=== PATIENT | female | born 1935 | race Caucasian/White ===

== ENCOUNTER 2017-01-17 09:29 | Emergency (ER) | payer OTHER ==
[~2017-01-17] VITALS: Ht 147.3 cm; Wt 61.0 kg
[2017-01-17 09:30] VITALS: BP 154/66; PULSE 104; RESP 16; TEMP 98.4; O2SAT 96
[2017-01-17] MEDS ORDERED: XARE15TA PO (09:50)
[2017-01-17] MEDS ORDERED: GABA100C4 PO (09:50)
[2017-01-17] MEDS ORDERED: SERT-132 PO (09:50)
[2017-01-17] MEDS ORDERED: PRAV20TA2 PO (09:50)
[2017-01-17] MEDS ORDERED: LEVO100T5 PO (09:50)
[2017-01-17] MEDS ORDERED: CART120C PO (09:50)
[2017-01-17] MEDS ORDERED: DIGO1TAB59 PO (09:50)
[2017-01-17] MEDS ORDERED: ALPR0.25 PO (09:50)
[2017-01-17] MEDS ORDERED: PRIL20TA2 (09:50)
[2017-01-17] MEDS ORDERED: VENTAER INH (09:51)
[2017-01-17] MEDS ORDERED: CITA10TA4 PO (09:51)
--- NOTE | 2017-01-17 10:13 | PD ---
HPI Chief Complaint: Musculoskeletal Complaint Time Seen by Provider: 09:53 Travel History International Travel<30 days: No Contact w/Intl Traveler<30days: No Traveled to known affect area: No History of Present Illness HPI 81-year-old female presents to the emergency room for evaluation of right leg pain that started this morning when she woke up. Pain is difficult to localize but starts in the lateral hip and extends down to the ankle. She has significant pain with ambulation. At rest, she only has pain in her knee. Pain is localized to the back of the knee. Denies trauma, fall, or injury. Patient states the past 3 days she has had right knee pain which has caused her to limp. This knee pain is chronic and intermittent. She does not take anything for her symptoms. Reports swelling just around the knee. Patient is on Xarelto for A. fib. She denies paresthesias, chest pain, new or worsening shortness of breath, or unilateral leg swelling. States both of her sisters have had blood clots and she is concerned for the same. She has history of degenerative disc disease, sciatica, and low back pain. PFSH Past Medical History ?: Unknown Social History Tobacco Use: No Allergies-Medications (Allergen,Severity, Reaction): Coded Allergies: No Known Allergies (Unverified , 01/17/17) Reported Meds & Prescriptions Reported Meds & Active Scripts Active Reported Citalopram (Citalopram Hydrobromide) 10 Mg Tab 10 Mg PO DAILY Ventolin Hfa 18 GM Inh (Albuterol Sulfate) 90 Mcg/Act Aer 1 Puff INH Q4H PRN Levothyroxine (Levothyroxine Sodium) 100 Mcg Tab 100 Mcg PO DAILY Pravastatin 20 Mg Tab 20 Mg PO DAILY Xarelto (Rivaroxaban) 15 Mg Tab 15 Mg PO DAILY Sertraline (Sertraline HCl) 50 Mg Tab 50 Mg PO DAILY Cartia Xt (Diltiazem ER 24 HR) 120 Mg Caper 100 Mg PO DAILY Alprazolam 0.25 Mg Tab 0.25 Mg PO HS PRN Prilosec (Omeprazole Magnesium) 20 Mg Tab Gabapentin 100 Mg Cap 100 Mg PO TID Digitek (Digoxin) 125 Mcg Tab 0.125 Mg PO DAILY Review of Systems Except as stated in HPI: all other systems reviewed are Neg Physical Exam Narrative GENERAL: Well-nourished, well-developed female in no acute distress. Afebrile. Ambulatory with a limp. SKIN: Focused skin assessment warm/dry. No erythema or ecchymosis. HEAD: Normocephalic. EYES: No scleral icterus. No injection or drainage. NECK: Supple, trachea midline. No JVD or lymphadenopathy. CARDIOVASCULAR: Regular rate and rhythm without murmurs, gallops, or rubs. RESPIRATORY: Breath sounds equal bilaterally. No accessory muscle use. MUSCULOSKELETAL: No cyanosis. No obvious edema. Pain with dorsiflexion and plantar flexion of the right foot. Full range of motion of the right hip and knee. Patient can lift leg off bed without difficulty. No calf tenderness. One plus dorsalis pedis pulse; confirmed with Doppler. Less than 2 second capillary refill distally. Data Data Last Documented VS Vital Signs Date Time Temp Pulse Resp B/P (MAP) Pulse Ox O2 Delivery O2 Flow Rate FiO2 01/17/17 09:30 98.4 104 16 154/66 (95) 96 Orders Orders Us Leg Venous Doppler (01/17/17 ) [facility] Medical Decision Making Medical Screen Exam Complete: Yes Emergency Medical Condition: Yes Medical Record Reviewed: Yes Differential Diagnosis Muscle strain, sciatica, muscle spasm Narrative Course 81-year-old female on Xarelto for A. fib presents to the emergency room for evaluation of right leg pain that started earlier. States for the past 3 days she has had a flare of chronic knee pain that spread to the remainder of her leg today. She has been limping because of the knee pain. Pain is constant, worse with range of motion and ambulation. She denies paresthesias. Denies trauma, injury, or fall. She does have faint, 1+ dorsalis pedis pulse confirmed with Doppler. Full range of motion of the right lower extremity. No obvious edema. Patient is concerned for blood clot and states she would feel better if she can get an ultrasound. I have low suspicion for DVT as patient is on blood thinners and there is no unilateral, pitting edema. Ultrasound shows 4 cm Khan cyst with no evidence of DVT. Patient was reassured and told to follow up with her primary care physician or return for worsening symptoms per chart understands and agrees to plan. Diagnosis Primary Impression: Muscle strain of right lower extremity Qualified Codes: S86.911A - Strain of unspecified muscle(s) and tendon(s) at lower leg level, right leg, initial encounter Additional Impression: Khan's cyst of knee Qualified Codes: M71.21 - Synovial cyst of popliteal space [Khan], right knee Referrals: Primary Care Physician Additional Instructions: Rest and drink plenty of fluids. Tylenol as directed, as needed for pain. Follow-up with a primary care physician. Return to the emergency room for worsening symptoms. Disposition: 01 DISCHARGE HOME Condition: Stable Heather Mcbride Jan 17, 2017 10:13
--- NOTE | 2017-01-17 10:45 | RADRPT ---
EXAM DATE/TIME: 01/17/2017 10:22 [facility] COMPARISON: No previous studies available for comparison. INDICATIONS : Right leg pain. MEDICAL HISTORY : Right leg pain. Afib. Asthma. Anticoagulant therapy, Xarelto. SURGICAL HISTORY : None. ENCOUNTER: Initial ACUITY: 1 day PAIN SCORE: 10/10 LOCATION: Right leg. TECHNIQUE: Venous ultrasound of the leg was performed from the inguinal ligament to the proximal calf. Real-sharmila e, color Doppler and spectral tracing, compression and augmentation techniques were used. FINDINGS: There is normal compressibility of the deep venous system from the inguinal region to the proximal ca lf. No echogenic clot is seen in the lumen of the common femoral, femoral, popliteal, and posterior tibial veins. There is a normal response of the venous system to proximal and distal augmentation an d respiration. There is a mild a complex avascular cystic lesion in the popliteal fossa measuring 3.2 x 4.1 x 2.9 cm . CONCLUSION: 1. No DVT is present in the right lower extremity. 2. There is a Khan's cyst measuring up to 4.1 cm. Adrián Ayala MD on January 17, 2017 at 10:43 Board Certified Radiologist. This report was verified electronically.
== END 2017-01-17 11:09 | disposition home or self-care (01) ==
LOC: NEPK 09:29
DX: S86.911A Strain of unspecified muscle(s) and tendon(s) at lower leg level, right leg, initial encounter (principal); M71.21 Synovial cyst of popliteal space [Baker], right knee; I48.91 Unspecified atrial fibrillation; X58.XXXA Exposure to other specified factors, initial encounter; Z79.01 Long term (current) use of anticoagulants
CPT/HCPCS: 93971; 99284